=== PATIENT | male | born 1985 | race Hispanic/Latino ===

== ENCOUNTER 2018-01-17 17:52 | Emergency (ER) | payer BC ==
[2018-01-17 17:55] VITALS: BMI 27.1
--- NOTE | 2018-01-17 18:11 | ED PDOC ---
Arrival/HPI - General Chief Complaint: Back Pain Time Seen by Provider: 01/17/18 17:53 Historian: Patient - History of Present Illness Narrative History of Present Illness (Text): 01/17/18 18:07 32yo male with no pmhx who present with complaint of worsening left shoulder pain x 2weeks. Notes that pain started after lifting weight. Pain is described as intermittent and sharp. States he continued lifting weight, whenever the pain resolves. He did not take any analgesic. Denies weakness, chest pain, SOB, abdominal pain, any other complaint. Past Medical History - Provider Review Nursing Documentation Reviewed: Yes - Infectious Disease Hx of Infectious Diseases: None - Psychiatric Hx Substance Use: No - Anesthesia Hx Anesthesia: No Family/Social History - Physician Review Nursing Documentation Reviewed: Yes Family/Social History: Unknown Family HX Smoking Status: Current Some Days Smoker Hx Alcohol Use: Yes Frequency of alcohol use: Socially Hx Substance Use: No Allergies/Home Meds Allergies/Adverse Reactions: Allergies No Known Allergies Allergy (Verified 01/17/18 17:55) Review of Systems - Physician Review All systems were reviewed & negative as marked: Yes - Review of Systems Constitutional: Normal Eyes: Normal ENT: Normal Respiratory: Normal Cardiovascular: Normal Gastrointestinal: Normal Genitourinary Male: Normal Musculoskeletal: Normal, Arthralgias (LEft shoulder pain) Skin: Normal Neurological: Normal Endocrine: Normal Hemo/Lymphatic: Normal Psychiatric: Normal Physical Exam Vital Signs Reviewed: Yes Vital Signs Temp Pulse Resp BP Pulse Ox 01/17/18 17:56 98.3 F 112 H 18 156/85 H 98 Temperature: Afebrile Blood Pressure: Normal Pulse: Regular Respiratory Rate: Normal Appearance: Positive for: Well-Appearing, Non-Toxic, Comfortable Pain Distress: None Mental Status: Positive for: Alert and Oriented X 3 - Systems Exam Head: Present: Atraumatic, Normocephalic Pupils: Present: PERRL Extroacular Muscles: Present: EOMI Conjunctiva: Present: Normal Mouth: Present: Moist Mucous Membranes Neck: Present: Normal Range of Motion Respiratory/Chest: Present: Clear to Auscultation, Good Air Exchange. No: Respiratory Distress, Accessory Muscle Use Cardiovascular: Present: Regular Rate and Rhythm, Normal S1, S2. No: Murmurs Abdomen: No: Tenderness, Distention, Peritoneal Signs Back: Present: Normal Inspection Upper Extremity: Present: NORMAL PULSES, Tenderness (LEft proximal posterior left shoulder), Neurovascularly Intact, Capillary Refill < 2s. No: Cyanosis, Edema, Normal ROM (limited ROM on abduction up to degree seconday to pain), Swelling, Erythema, Temperature Abnormalties, Deformity Lower Extremity: Present: Normal Inspection. No: Edema Neurological: Present: GCS=15, CN II-XII Intact, Speech Normal Skin: Present: Warm, Dry, Normal Color. No: Rashes Psychiatric: Present: Alert, Oriented x 3, Normal Insight, Normal Concentration Medical Decision Making ED Course and Treatment: 01/17/18 18:39 Pt presented for stated history. He was neurologically intact. His pain was reproducible and he had ROM on abduction secondary to pain. Left shoulder xray - No acute fracture/dislocation noted Result was DW the pt. He notes that he lifts weight and was advised to stop until his cleared by ortho. He was referred to orthopedist. Naprosyn was given for pain control. - RAD Interpretation Radiology Orders: 01/17/18 18:05 SHOULDER LEFT [RAD] Stat - Medication Orders Current Medication Orders: Discontinued Medications Ketorolac Tromethamine (Toradol) 60 mg IM STAT STA Stop: 01/17/18 18:06 Disposition/Present on Arrival - Present on Arrival Any Indicators Present on Arrival: No History of DVT/PE: No History of Uncontrolled Diabetes: No Urinary Catheter: No History of Decub. Ulcer: No History Surgical Site Infection Following: None - Disposition Have Diagnosis and Disposition been Completed?: Yes Diagnosis: Shoulder pain Disposition: HOSPITALIZED Disposition Time: 18:45 Patient Plan: Discharge Condition: STABLE Discharge Instructions (ExitCare): Shoulder Pain (DC) Additional Instructions: Follow up with your Doctor/Orthopedist Return to ED for any new or worsening symptoms Prescriptions: Naproxen [Naprosyn] 500 mg PO BID #20 tab Referrals: FAMILY PROVIDER,NO [Primary Care Provider] - Follow up with primary Tone Ugarte MD [Medical Doctor] - Follow up with primary Forms: [employer] (Tajik)
[2018-01-17 18:17] VITALS: BP 156/85; PULSE 112; RESP 18; TEMP 98.3; O2SAT 98
--- NOTE | 2018-01-18 09:05 | RAD ---
PROCEDURE: Radiographs of the Left Shoulder HISTORY: shoulder pain COMPARISON: No prior. FINDINGS: BONES: Normal. No fracture. JOINTS: Normal. Glenohumeral and acromioclavicular joints preserved. No osteoarthritis. SOFT TISSUES: Normal. OTHER FINDINGS: None. IMPRESSION: Normal radiographs of the left shoulder.
== END 2018-01-17 18:59 | disposition home or self-care (01) ==
LOC: ED 17:52
DX: M25.512 Pain in left shoulder (principal)
CPT/HCPCS: 73030; 96372; 99282; J1885

== ENCOUNTER 2018-06-12 09:45 | Emergency (ER) | payer BC ==
[2018-06-12 09:45] VITALS: BMI 27.1
[2018-06-12 09:57] VITALS: TEMP 98.4; O2SAT 99
--- NOTE | 2018-06-12 10:19 | ED PDOC ---
Arrival/HPI - General Chief Complaint: Abdominal Pain Historian: Patient - History of Present Illness Narrative History of Present Illness (Text): 06/12/18 10:10 32 year old male, with no significant past medical history, no known food or drug allergies, presents to the emergency department complaining of acute onset of right upper quadrant abdominal pain that began last night approximately 11PM associated with eating. He states the pain persisted from the evening to today, feel nausea but no vomiting. Patient denies any past abdominal surgeries. Patient denies any fever, chills, cough, vomiting, diarrhea, or any other complaints. Time/Duration: Other (last night) Symptom Onset: Gradual Symptom Course: Unchanged Activities at Onset: Eating Context: Home Past Medical History - Provider Review Nursing Documentation Reviewed: Yes - Infectious Disease Hx of Infectious Diseases: None - Psychiatric Hx Substance Use: No - Anesthesia Hx Anesthesia: No Family/Social History - Physician Review Nursing Documentation Reviewed: Yes Family/Social History: Unknown Family HX Smoking Status: Current Some Days Smoker Hx Alcohol Use: Yes Hx Substance Use: No Allergies/Home Meds Allergies/Adverse Reactions: Allergies No Known Allergies Allergy (Verified 01/17/18 17:55) Home Medications: Home Meds Medication Instructions Recorded Confirmed No Known Home Med 06/12/18 06/12/18 Review of Systems - Physician Review All systems were reviewed & negative as marked: Yes - Review of Systems Constitutional: absent: Fatigue, Fevers Eyes: absent: Vision Changes ENT: absent: Hearing Changes Respiratory: absent: SOB, Cough Cardiovascular: absent: Chest Pain Gastrointestinal: Abdominal Pain, Nausea. absent: Diarrhea, Vomiting Skin: absent: Rash, Pruritis Neurological: absent: Headache, Dizziness Psychiatric: absent: Anxiety, Depression, Suicidal Ideation Physical Exam Vital Signs Reviewed: Yes Vital Signs Temp Pulse Resp BP Pulse Ox 06/12/18 09:55 98.4 F 95 H 18 122/78 99 Temperature: Afebrile Blood Pressure: Normal Pulse: Regular Respiratory Rate: Normal Appearance: Positive for: Well-Appearing, Non-Toxic Pain Distress: Moderate Mental Status: Positive for: Alert and Oriented X 3 - Systems Exam Head: Present: Atraumatic, Normocephalic Pupils: Present: PERRL Extroacular Muscles: Present: EOMI Conjunctiva: Present: Normal Mouth: Present: Moist Mucous Membranes Neck: Present: Normal Range of Motion Respiratory/Chest: Present: Clear to Auscultation, Good Air Exchange. No: Respiratory Distress, Accessory Muscle Use Cardiovascular: Present: Regular Rate and Rhythm, Normal S1, S2. No: Murmurs Abdomen: Present: Tenderness (+epigastric and RUQ tenderness, no periumbilical or LLQ/RLQ tenderness), Normal Bowel Sounds. No: Distention, Peritoneal Signs, Rebound, Guarding Back: Present: Normal Inspection Upper Extremity: Present: Normal Inspection. No: Cyanosis, Edema Lower Extremity: Present: Normal Inspection. No: Edema Neurological: Present: GCS=15, CN II-XII Intact, Speech Normal, Motor Func Grossly Intact, Gait Normal, Memory Normal Skin: Present: Warm, Dry, Normal Color. No: Rashes Psychiatric: Present: Alert, Oriented x 3, Normal Insight, Normal Concentration Medical Decision Making ED Course and Treatment: 06/12/18 10:18 -labs -abdominal sonogram -IVF/pepcid/zofran -Observe and reassess 06/12/18 12:19 -Labs show no acute significant findings except Potassium 5.1 (hemolyzed, normal bun creatitine, asymptomatic, , no reason for hyperkalemia) -Repeated potassium is 5.7 ([employer] stated that they didn't send any new blood work for this patient so not sure where 5.7 is coming from. -Lipase within normal limit. -UA ordered and pending result. -Gallbladder sonogram show Mild hepatomegaly. Diffuse increased echogenicity in the liver may reflect hepatic steatosis however parenchymal infectious/ inflammatory etiologies cannot be entirely excluded. Clinical and laboratory correlation is advised. No cholelithiasis or biliary dilatation. -Abd xray Constipation and fecal impaction in the rectum. Nonobstructive bowel- gas pattern. -I went to the bedside, pt. is gone with IV left on the bedside, spoke to the assigned RN stated that the patient felt better and pull out the IV and left, didn't stay for the AMA or discussion of labs/radiology results, didn't stay for repeat lab work for hyperkalemia and didn't stay for ekg, paged over head 3 times and no response, will place as elopement without full evaluation. - RAD Interpretation Radiology Orders: HISTORY: RUQ pain COMPARISON: None. TECHNIQUE: Grayscale imaging was performed. FINDINGS: LIVER: Measures 16.5 cm in length. There is diffuse increased echogenicity of the liver parenchyma. No mass. No intrahepatic bile duct dilatation. GALLBLADDER: There are no gallstones, wall thickening or pericholecystic fluid. The sonographic Ackerman's sign is negative. COMMON BILE DUCT: Measures 3.0 mm. No stones. No dilatation. PANCREAS: Obscured by bowel gas. RIGHT KIDNEY: Measures 10.5 cm in length. Normal echogenicity. No calculus, mass, or hydronephrosis. AORTA: No aneurysmal dilatation. IVC: Unremarkable. OTHER FINDINGS: None . IMPRESSION: Mild hepatomegaly. Diffuse increased echogenicity in the liver may reflect hepatic steatosis however parenchymal infectious/ inflammatory etiologies cannot be entirely excluded. Clinical and laboratory correlation is advised. No cholelithiasis or biliary dilatation. Abdominal xray: Date of service: 06/12/2018 HISTORY: abdominal pain, upper COMPARISON: None available. FINDINGS: BOWEL: There is moderate amount of stool in the colon and fecal impaction in the rectum. The bowel gas pattern is nonobstructive. There is no free intraperitoneal air. BONES: Normal. OTHER FINDINGS: None. IMPRESSION: Constipation and fecal impaction in the rectum. Nonobstructive bowel-gas pattern. Breastfeeding Educator: Radiologist - PA / ROUTE AGENT / Resident Statement MD/DO has reviewed & agrees with the documentation as recorded. Disposition/Present on Arrival - Present on Arrival Any Indicators Present on Arrival: No History of DVT/PE: No History of Uncontrolled Diabetes: No Urinary Catheter: No History of Decub. Ulcer: No History Surgical Site Infection Following: None - Disposition Have Diagnosis and Disposition been Completed?: Yes Diagnosis: Constipation, Abdominal pain, Non-compliance, Hyperkalemia Disposition: ELOPEMENT - ER ONLY Disposition Time: 12:21 Condition: STABLE Forms: [email or web address] (Upper Sorbian)
[2018-06-12 10:27] LABS: BASO # 0.03 K/mm3 (0.0-2.0); BASO % 0.5 % (0.0-3.0); EOS # 0.1 (0.0-0.7); EOS % 1.2 % (1.5-5.0); GRAN # 4.64 (1.4-6.5); GRAN % 70.6 % (50.0-68.0); HEMOGLOBIN 15.8 g/dL (14.0-18.0); LYMPH # 1.2 (1.2-3.4); MEAN CELL VOLUME 91.3 fl (80.0-105.0); MEAN CORPUSCULAR HGB CONC 35.1 g/dl (31.0-37.0); MEAN PLATELET VOLUME 9.4 fl (7.0-11.0); MONO # 0.6 (0.1-0.6); MONO % 9.7 % (1.0-6.0); RBC 4.93 10^6/uL (3.5-6.1); RED CELL DISTRIBUTION WIDTH 12.2 % (11.5-14.5); WHITE BLOOD COUNT 6.6 10^3/uL (4.5-11.0)
[2018-06-12] MEDS ORDERED: Sodium Chloride 0.9% 1,000 ML IV SCH (10:30)
[2018-06-12 11:00] LABS: BLOOD UREA NITROGEN 14 mg/dL (7-21); CALCIUM 9.2 mg/dL (8.4-10.5); GFR NON-AFRICAN AMERICAN > 60; LIPASE 112 U/L (23-300)
[2018-06-12 11:01] LABS: ALB/GLOB RATIO 1.1 (1.1-1.8); ALBUMIN 4.2 g/dL (3.0-4.8); ALT/SGPT 49 U/L (7-56); AST/SGOT 40 U/L (17-59)
--- NOTE | 2018-06-12 11:34 | US ---
Date of service: 06/12/2018 HISTORY: RUQ pain COMPARISON: None. TECHNIQUE: Grayscale imaging was performed. FINDINGS: LIVER: Measures 16.5 cm in length. There is diffuse increased echogenicity of the liver parenchyma. No mass. No intrahepatic bile duct dilatation. GALLBLADDER: There are no gallstones, wall thickening or pericholecystic fluid. The sonographic Ackerman's sign is negative. COMMON BILE DUCT: Measures 3.0 mm. No stones. No dilatation. PANCREAS: Obscured by bowel gas. RIGHT KIDNEY: Measures 10.5 cm in length. Normal echogenicity. No calculus, mass, or hydronephrosis. AORTA: No aneurysmal dilatation. IVC: Unremarkable. OTHER FINDINGS: None . IMPRESSION: Mild hepatomegaly. Diffuse increased echogenicity in the liver may reflect hepatic steatosis however parenchymal infectious/ inflammatory etiologies cannot be entirely excluded. Clinical and laboratory correlation is advised. No cholelithiasis or biliary dilatation.
--- NOTE | 2018-06-12 11:51 | RAD ---
Date of service: 06/12/2018 HISTORY: abdominal pain, upper COMPARISON: None available. FINDINGS: BOWEL: There is moderate amount of stool in the colon and fecal impaction in the rectum. The bowel gas pattern is nonobstructive. There is no free intraperitoneal air. BONES: Normal. OTHER FINDINGS: None. IMPRESSION: Constipation and fecal impaction in the rectum. Nonobstructive bowel-gas pattern.
[2018-06-12 11:53] VITALS: BP 118/68; PULSE 68; RESP 15
[2018-06-12 12:06] LABS: PH,URINE 8.5 (4.7-8.0); URINE BILIRUBIN NEGATIVE (NEGATIVE); URINE BLOOD NEGATIVE (NEGATIVE); URINE GLUCOSE (UA) NEGATIVE (NEGATIVE); URINE LEUKOCYTE ESTERASE NEGATIVE Leu/uL (NEGATIVE); URINE PROTEIN NEGATIVE mg/dL (<30 mg/dL)
[2018-06-12 12:11] LABS: URINE APPEARANCE CLEAR (CLEAR); URINE COLOR YELLOW (YELLOW)
== END 2018-06-12 12:20 | disposition left against medical advice (07) ==
LOC: ED 09:45
DX: K59.00 Constipation, unspecified (principal); R10.9 Unspecified abdominal pain; E87.5 Hyperkalemia; Z91.14 Patient's other noncompliance with medication regimen
CPT/HCPCS: 74019; 76705; 80053; 81003; 83690; 83735; 84132; 85025; 96361; 96374; 96375; 99283; J2405; J7030